=== PATIENT | male | born 1970 | race Caucasian/White ===

== ENCOUNTER 2018-11-15 17:28 | Emergency (ER) | payer OTHER ==
[~2018-11-15] VITALS: Ht 190.5 cm; Wt 88.9 kg
[~2018-11-15 17:28] MED LIST: ALBU90OI INH; AMOX250 PO; BENZ100A PO; CHLO25 PO; CLIN300 PO; CYCL10 PO; Crutch1 EACH MISC; HYDACE5 PO; IBUP800 PO; Norco 5-325 Ta1 EACH PO; SPACE CHAMBER1 EACH MC; VENL25
[2018-11-15] MEDS ORDERED: VENL25 PO (17:38)
[2018-11-15 18:16] LABS: BASOPHILS ABSOLUTE AUTO 0.04 K/mm3 (0.00-0.23); BASOPHILS PERCENT AUTO 0 % (0-2); EOSINOPHILS ABSOLUTE AUTO 0.03 K/mm3 (0.00-0.68); EOSINOPHILS PERCENT AUTO 0 % (0-6); Hematocrit 42.5 % (37.0-53.0); Hemoglobin 14.8 g/dL (13.5-17.5); IMMATURE GRAN ABSOLUTE AUTO 0.05 K/mm3 (0.00-0.10); IMMATURE GRAN PERCENT AUTO 0 % (0-1); LYMPHOCYTES ABSOLUTE AUTO 1.69 K/mm3 (0.84-5.20); LYMPHOCYTES PERCENT AUTO 12 % (21-46); MONOCYTES ABSOLUTE AUTO 1.25 K/mm3 (0.16-1.47); MONOCYTES PERCENT AUTO 9 % (4-13); Mean Corpuscular HGB 32.5 pg (26.0-34.0); Mean Corpuscular HGB Conc 34.8 g/dL (31.5-36.5); Mean Corpuscular Volume 93 fL (80-100); Mean Platelet Volume 9.8 fL (9.1-12.4); NEUTROPHILS ABSOLUTE AUTO 11.63 K/mm3 (1.96-9.15); NEUTROPHILS PERCENT AUTO 79 % (41-73); Platelet Count 183 K/mm3 (150-400); RDW Coefficient Variation 12.2 % (11.7-14.2); RDW Standard Deviation 42.5 fL (35.1-46.3); Red Blood Cell Count 4.56 M/mm3 (4.30-5.90); White Blood Cell Count 14.69 K/mm3 (4.00-11.30)
[2018-11-15 18:38] LABS: Anion Gap 12 mmol/L (6-16); Blood Urea Nitrogen 11 mg/dL (8-24); Bun/Creatinine Ratio 12.2 (12.0-20.0); CO2, Blood 22 mmol/L (21-32); Calcium, Blood 8.5 mg/dL (8.5-10.1); Chloride, Blood 103 mmol/L (98-108); Glomerular Filtration Rate >60 (60-); Glucose, Blood 113 mg/dL (70-99); Sodium, Blood 137 mmol/L (136-145)
[2018-11-15] MEDS ORDERED: Percocet 5-3251 EACH PO (21:37)
[2018-11-15] MEDS ORDERED: CHLO25 PO (21:37)
== END 2018-11-15 21:52 | disposition home or self-care (01) ==
LOC: ER 17:28
PROVIDERS: Physician Assistant
DX: S02.609A Fracture of mandible, unspecified, initial encounter for closed fracture (principal); S02.82XA Fracture of other specified skull and facial bones, left side, initial encounter for closed fracture; S00.531A Contusion of lip, initial encounter; F10.239 Alcohol dependence with withdrawal, unspecified; F17.200 Nicotine dependence, unspecified, uncomplicated; Y04.0XXA Assault by unarmed brawl or fight, initial encounter
CPT/HCPCS: 36415; 70486; 80048; 85025; 99284-25

== ENCOUNTER 2019-08-14 01:37 | Observation (INO) | payer OTHER ==
[~2019-08-14] VITALS: Ht 182.9 cm; Wt 99.8 kg
[~2019-08-14 01:37] MED LIST changes: +Percocet 5-3251 EACH PO; +VENL25 PO
== END 2019-08-14 08:30 | disposition home or self-care (01) ==
LOC: ER 01:37 → EOR 01:38
PROVIDERS: ADMIT Emergency Medicine
DX: R45.851 Suicidal ideations (principal); F10.129 Alcohol abuse with intoxication, unspecified; F17.200 Nicotine dependence, unspecified, uncomplicated; Z79.899 Other long term (current) drug therapy
CPT/HCPCS: 36415; 99285; G0378

== ENCOUNTER 2020-11-14 17:12 | Observation (INO) | payer OTHER ==
[~2020-11-14] VITALS: Ht 190.5 cm; Wt 104.3 kg
[~2020-11-14 17:12] MED LIST changes: +NEURONTIN600 MG PO
[2020-11-14] MEDS ORDERED: BUSP5 (17:24)
[2020-11-14] MEDS ORDERED: VENL25 (17:24)
[2020-11-14 17:50] LABS: BASOPHILS ABSOLUTE AUTO 0.04 K/mm3 (0.00-0.23); BASOPHILS PERCENT AUTO 0 % (0-2); EOSINOPHILS ABSOLUTE AUTO 0.25 K/mm3 (0.00-0.68); EOSINOPHILS PERCENT AUTO 2 % (0-6); Hematocrit 41.7 % (37.0-53.0); Hemoglobin 13.6 g/dL (13.5-17.5); IMMATURE GRAN ABSOLUTE AUTO 0.05 K/mm3 (0.00-0.10); IMMATURE GRAN PERCENT AUTO 0 % (0-1); LYMPHOCYTES PERCENT AUTO 24 % (21-46); MONOCYTES ABSOLUTE AUTO 1.23 K/mm3 (0.16-1.47); MONOCYTES PERCENT AUTO 8 % (4-13); Mean Corpuscular HGB 29.4 pg (26.0-34.0); Mean Corpuscular HGB Conc 32.6 g/dL (31.5-36.5); Mean Corpuscular Volume 90 fL (80-100); NEUTROPHILS ABSOLUTE AUTO 10.08 K/mm3 (1.96-9.15); NEUTROPHILS PERCENT AUTO 66 % (41-73); Platelet Count 215 K/mm3 (150-400); RDW Coefficient Variation 12.9 % (11.7-14.2); RDW Standard Deviation 42.5 fL (35.1-46.3); Red Blood Cell Count 4.62 M/mm3 (4.30-5.90); White Blood Cell Count 15.35 K/mm3 (4.00-11.30)
[2020-11-14 18:04] LABS: Alanine Aminotransfer (ALT/SGP 24 U/L (12-78); Albumin, Blood 3.7 g/dL (3.4-5.0); Alk Phos 79 U/L (50-136); Anion Gap 2 mmol/L (6-16); Aspartate Aminotrans (AST/SGOT 13 U/L (12-37); Bilirubin, Total 0.3 mg/dL (0.1-1.0); Blood Urea Nitrogen 9 mg/dL (8-24); Bun/Creatinine Ratio 11.2 (12.0-20.0); CO2, Blood 30 mmol/L (21-32); Calcium, Blood 8.7 mg/dL (8.5-10.1); Chloride, Blood 107 mmol/L (98-108); Creatinine, Blood 0.81 mg/dL (0.60-1.20); Globulin, Blood 3.8 g/dL (2.2-4.0); Glomerular Filtration Rate >60 (60-); Glucose, Blood 111 mg/dL (70-99); Potassium, Blood 3.7 mmol/L (3.5-5.5); Sodium, Blood 139 mmol/L (136-145); Total Protein, Blood 7.5 g/dL (6.4-8.2)
[2020-11-14 19:48] LABS: Source, Urine Clean Catch
[2020-11-14 20:05] LABS: Appearance, Urine Clear (Clear); Bilirubin, Urine Neg (Neg); Blood, Urine Neg (Neg); Color, Urine Yellow (P-Yellow); Glucose Qualitative, Urine Neg (Neg); Ketones, Urine Neg (Neg); Leukocyte Esterase, Urine Neg (Neg); Nitrite, Urine Neg (Neg); Protein, Urine Neg (Neg); Specific Gravity, Urine 1.015 (1.003-1.022); Urobilinogen, Urine 1+ (Normal); pH, Urine 6.5 (5.0-8.0)
[2020-11-14] MEDS ORDERED: VENLAFAXINE HC225 MG PO (21:05)
[2020-11-14] MEDS ORDERED: Buspirone HCl15 MG PO (21:05)
[2020-11-14] MEDS ORDERED: REMERON15 M1 PO (21:23)
[2020-11-14 23:11] LABS: Influenza A, PCR Negative (NEGATIVE); Influenza B, PCR Negative (NEGATIVE); Resp Syncytial Virus, PCR Negative (NEGATIVE); SARS-Cov-2 (COVID-19) PCR, MMC Negative (NEGATIVE)
--- NOTE | 2020-11-15 03:20 | NUR ---
THE PATIENT ARRIVED ON UNIT AT 2200 ON 11/14/20. RLQ PAIN HE IS ALERT AND ORIENTED X4. VS ARE WNL AND IS ON RA. PATIENT REPORTED NO PAIN ON ARRIVAL. HE IS PLEASANT AND LIKES TO MAKE JOKES. HE WAS ABLE TO EAT UNTIL 0000. HE TOLERATED THE PO INTAKE WHEN HE COULD. PATIENT HAS ALSO VOIDED. HE WAS ABLE TO WALK TO HIS BED FROM THE ER BED. HE WAS EDUCATED ON HOW TO USE THE CALL LIGHT AND VERBALIZED UNDERSTANDING. HE HAS FLUIDS RUNNING. CALL LIGHT WITHIN REACH.
--- NOTE | 2020-11-15 03:24 | NUR ---
SHIFT SUMMARY: APPENDICITIS NO SIGNIFICANT CHANGES SINCE ARRIVING ON UNIT. HE IS ALERT AND ORIENTED X4 WHILE AWAKE. HE HAS BEEN ASLEEP MAJORITY OF THE SHIFT BUT IS EASILY AROUSABLE. VITALS ARE WNL. PAIN IS CONTROLLED WITH IV DILAUDID. MOST PAINFUL WITH PALPATATION OF RLQ ON ABD. HE HAS FLUIDS RUNNING CURRENTLY. HE HAS BEEN NPO SINCE MIGHTNIGHT. HE IS LAYING DOWN IN BED. CALLS APPROPRIATELY. CALL LIGHT WITHIN REACH. THE PLAN IS FOR POSSIBLE SURGERY TODAY.
--- NOTE | 2020-11-15 08:56 | NUR ---
TO DAY SURGERY PER CART
[2020-11-15] MEDS ORDERED: AMOCLA875 PO (12:32)
[2020-11-15] MEDS ORDERED: HYDR1TAB94 PO (12:33)
--- NOTE | 2020-11-15 14:06 | NUR ---
1400 DISCHARGE PT REPORTS PAIN IS CONTROLLED, HAS NOT TAKEN ANY PAIN MEDS POST OP. JOSH PO FOOD AND FLUIDS WITHOUT NAUSEA. PT AMBULATING IN ROOM AND HALLWAYS. ABD INCISIONS WITH STERI STRIPS INTACT. UMBILICAL INCISION WITH SMALL AMOUNT BLOODY DRAINAGE, 4X4 GAUZE APPLIED AND 4X4 GAUZE SENT HOME WITH PATIENT
== END 2020-11-15 14:00 | disposition home or self-care (01) ==
LOC: ER 17:12 → SURS 17:13 → ER 20:57 → SURS 20:57 → ER 21:50 → SURS 21:57
PROVIDERS: Physician Assistant; ADMIT Surgery
DX: K35.80 Unspecified acute appendicitis (principal); F17.210 Nicotine dependence, cigarettes, uncomplicated; Z79.899 Other long term (current) drug therapy; Z20.822 Contact with and (suspected) exposure to COVID-19; Z23 Encounter for immunization
CPT/HCPCS: 0241U; 36415; 74177; 80053; 81003; 83690; 85025; 88304; 96361; 96365-59; 96375; 99285-25; J0295; J0694; J1100; J1170; J1885; J2250; J2405; J2704; J3010; J7030; J7120; Q9967

== ENCOUNTER 2022-02-16 12:44 | Inpatient (IN) | payer OTHER ==
[~2022-02-16] VITALS: Ht 190.5 cm; Wt 102.6 kg
[~2022-02-16 12:44] MED LIST changes: +AMOCLA875 PO; +BUSP5; +Buspirone HCl15 MG PO; +HYDR1TAB94 PO; +REMERON15 M1 PO; +VENLAFAXINE HC225 MG PO
[2022-02-16 15:31] LABS: BASOPHILS ABSOLUTE AUTO 0.05 K/mm3 (0.00-0.23); BASOPHILS PERCENT AUTO 1 % (0-2); EOSINOPHILS ABSOLUTE AUTO 0.09 K/mm3 (0.00-0.68); EOSINOPHILS PERCENT AUTO 1 % (0-6); Hematocrit 39.8 % (37.0-53.0); IMMATURE GRAN ABSOLUTE AUTO 0.02 K/mm3 (0.00-0.10); IMMATURE GRAN PERCENT AUTO 0 % (0-1); LYMPHOCYTES ABSOLUTE AUTO 2.63 K/mm3 (0.84-5.20); LYMPHOCYTES PERCENT AUTO 32 % (21-46); MONOCYTES ABSOLUTE AUTO 1.13 K/mm3 (0.16-1.47); MONOCYTES PERCENT AUTO 14 % (4-13); Mean Corpuscular HGB Conc 35.2 g/dL (31.5-36.5); Mean Corpuscular Volume 91 fL (80-100); Mean Platelet Volume 10.5 fL (9.1-12.4); NEUTROPHILS ABSOLUTE AUTO 4.33 K/mm3 (1.96-9.15); NEUTROPHILS PERCENT AUTO 53 % (41-73); Platelet Count 144 K/mm3 (150-400); RDW Coefficient Variation 11.9 % (11.7-14.2); RDW Standard Deviation 39.7 fL (35.1-46.3); Red Blood Cell Count 4.37 M/mm3 (4.30-5.90); White Blood Cell Count 8.25 K/mm3 (4.00-11.30)
[2022-02-16 15:43] LABS: Alanine Aminotransfer (ALT/SGP 84 U/L (12-78); Albumin, Blood 3.9 g/dL (3.4-5.0); Alk Phos 58 U/L (50-136); Anion Gap 12 mmol/L (6-16); Aspartate Aminotrans (AST/SGOT 46 U/L (12-37); Bilirubin, Total 1.2 mg/dL (0.1-1.0); Blood Urea Nitrogen 9 mg/dL (8-24); CO2, Blood 23 mmol/L (21-32); Calcium, Blood 8.9 mg/dL (8.5-10.1); Chloride, Blood 94 mmol/L (98-108); Creatinine, Blood 0.64 mg/dL (0.60-1.20); Ethanol (Alcohol), Blood, Med <3 mg/dL; Globulin, Blood 3.8 g/dL (2.2-4.0); Glomerular Filtration Rate >60 (60-); Glucose, Blood 102 mg/dL (70-99); Potassium, Blood 3.1 mmol/L (3.5-5.5); Sodium, Blood 129 mmol/L (136-145); Total Protein, Blood 7.7 g/dL (6.4-8.2)
[2022-02-16 15:44] LABS: Source, Urine Clean Catch
[2022-02-16 15:53] LABS: Thyroid Stimulating Hormone 1.15 uIU/mL (0.360-4.800); Thyroxine (T4) 8.5 ug/dL (4.5-12.1)
[2022-02-16 15:53] LABS: Appearance, Urine Clear (Clear); Bilirubin, Urine Neg (Neg); Blood, Urine Neg (Neg); Color, Urine Yellow (P-Yellow); Glucose Qualitative, Urine Neg (Neg); Ketones, Urine 2+ (Neg); Leukocyte Esterase, Urine Neg (Neg); Nitrite, Urine Neg (Neg); Protein, Urine Neg (Neg); Specific Gravity, Urine 1.005 (1.003-1.022); Urobilinogen, Urine NORM (Normal); pH, Urine 6.5 (5.0-8.0)
[2022-02-16 16:15] LABS: U Amphetamine Screen Not Detected; U Barbituate Screen Not Detected; U Benzodiazapine Screen DETECTED; U Buprenorphine Screen Not Detected; U Cannabinoids Screen Not Detected; U Cocaine Screen Not Detected; U Methadone Screen Not Detected; U Methamphetamine Screen Not Detected; U Opiates Screen Not Detected; U Oxycodone Screen Not Detected; U Phencyclidine Screen Not Detected; U Propoxyphene Screen Not Detected
--- NOTE | 2022-02-16 18:05 | NUR ---
RECEIVED PT FROM ER VIA GURNEY WITH SECURITY AT BEDSIDE. [facility] 48-DR. ESPINOSA AWARE. PT WRITHING IN BED AND PULLING ON TAT RESTRAINTS X 4 EXTREMITIES. PT EXTREMELY DIAPHORETIC TO THE POINT THAT ECG PATCHES AND IV DRESSING NOT STICKING TO HIM. ECG SHOWS ST WITH RATE 120-130'S. BP 150/100'S. THELMA 99.0 LUNGS CLEAR. NO NOTED SOB. SATS>90% ON RA. NO NOTED GI DISTRESS. PRECEDEX DRIP INITIATED AT 1.4 MCG/KG/MIN AND PT STILL WRITHING, PULLING ON RESTRAINTS AND CRYING OUT-MED WITH ATIVAN 3 MG IVP X 2 SEE EMAR-MINIMAL IMPROVEMENT WITH ATIVAN.
--- NOTE | 2022-02-16 18:50 | NUR ---
DR. CORREIA NOTIFIED BY EMILIE SALINAS THAT PT CIWA STILL 48 DESPITE PRECEDEX DRIP AND ATIVAN 3 MG IVP. ORDERS GIVEN FOR ZYPREXA 10 MG IM X1 NOW AND TO CHANGE TO CIWA PROTOCOL/ORDER SET.
[2022-02-16 20:55] LABS: Source, Urine Clean Catch
[2022-02-16 20:58] LABS: Appearance, Urine Clear (Clear); Bilirubin, Urine Neg (Neg); Blood, Urine 2+ (Neg); Color, Urine Yellow (P-Yellow); Glucose Qualitative, Urine Neg (Neg); Ketones, Urine 3+ (Neg); Leukocyte Esterase, Urine Neg (Neg); Nitrite, Urine Neg (Neg); Protein, Urine 2+ (Neg); Specific Gravity, Urine 1.025 (1.003-1.022); Urobilinogen, Urine 2+ (Normal)
[2022-02-16 21:16] LABS: Hyaline Casts 0-2 /lpf (0-2)
[2022-02-16 21:17] LABS: Bacteria Mod /hpf; Red Blood Cells, Urine Rare /hpf (0-2); Squamous Epithelial Cells Rare /hpf (Few); White Blood Cells, Urine Rare /hpf (0-5)
--- NOTE | 2022-02-16 23:28 | NUR ---
SHIFT ASSESSMENT ASSUMED CARE OF PT @ 1900. BEDSIDE REPORT RECEIVED FROM EMILIE KAPLAN. PT IN 4 POINT RESTRAINTS, RESTLESS AND EXTREMELY DIAPHORETIC, NOT FOLLOWING COMMANDS NOR RESPONDING VERBALLY. ON 4LPM O2 VIA NC c O2 SATS >90%. CIWA REMAINED ELEVATED. PRECEDEX WAS INFUSING @ 1.4. SECOND 18 GA IV ESTABLISHED, KCL INFUSION STARTED. TEMP PROBE PATEL CATH INSERTED WITHOUT DIFFICULTY. PT GIVEN DOSE OF 2MG ATIVAN BY THIS NURSE FOR CIWA, PTS DIAPHORESIS BETTER. PRECEDEX TITRATED OFF, HAS REMAINED OFF SINCE 2029. PT WILL NOW STIR TO STIMULI, ABLE TO SQUEEZE BOTH HANDS AND WIGGLE FEET BUT NOT RESPONDING VERBALLY. REMAINS SOMNOLENT WITHOUT STIMULATION. BP STABLE. SINUS TARA IN THE 50'S ON THE NETWORK DIRECTOR. WILL CONTINUE TO MONITOR CLOSELY.
--- NOTE | 2022-02-17 02:57 | NUR ---
UPDATE PT BEGAN WAKING UP AROUND 0200. PULLING AT RESTRAINTS, TRYING TO EAT PULSE OXIMETRY EMERGENCY DISPATCHER R FINGER. PT REDIRECTABLE FOR SHORT PERIODS. WILL FOLLOW COMMANDS. STATES HIS NAME AND BUT BELIEVES HE IS AT SOMEONES HOUSE. INFORMED PT OF HIS CONDITION AND LOCATION. HE MENTIONED HAVING SEIZURES IN THE PAST FROM ALCOHOL W/D. PT UNDERSTOOD HE WAS AT THE HOSPITAL WHEN THIS NURSE EXPLAINS SITUATION, BUT QUICKLY FORGETS PREVIOUS CONVERSATION. OFFERED PT SOMETHING TO DRINK WITH THE LIBRIUM, PT REQUESTED A BEER. CONVERSATION INITIATED ABOUT PT CONTINUING SOBRIETY OR IF HE PLANS ON DRINKING AGAIN. PT MUMBLED POSSIBLE TREATMENT FACILITY. MEDICATED PT WITH ATIVAN AND LIBRIUM DUE TO INCREASING CIWA SCORE. PRECEDEX BACK ON WELL @ 0.2MCG/KG/HR DUE TO PT BECOMING SLIGHTLY AGITATED. VSS. WILL CONTINUE TO MONITOR CLOSELY.
[2022-02-17 04:33] LABS: BASOPHILS ABSOLUTE AUTO 0.03 K/mm3 (0.00-0.23); BASOPHILS PERCENT AUTO 0 % (0-2); EOSINOPHILS ABSOLUTE AUTO 0.09 K/mm3 (0.00-0.68); EOSINOPHILS PERCENT AUTO 1 % (0-6); Hematocrit 39.1 % (37.0-53.0); Hemoglobin 13.7 g/dL (13.5-17.5); IMMATURE GRAN ABSOLUTE AUTO 0.04 K/mm3 (0.00-0.10); IMMATURE GRAN PERCENT AUTO 0 % (0-1); LYMPHOCYTES ABSOLUTE AUTO 1.96 K/mm3 (0.84-5.20); LYMPHOCYTES PERCENT AUTO 19 % (21-46); MONOCYTES ABSOLUTE AUTO 1.01 K/mm3 (0.16-1.47); MONOCYTES PERCENT AUTO 10 % (4-13); Mean Corpuscular HGB 32.3 pg (26.0-34.0); Mean Corpuscular Volume 92 fL (80-100); Mean Platelet Volume 10.3 fL (9.1-12.4); NEUTROPHILS ABSOLUTE AUTO 7.01 K/mm3 (1.96-9.15); NEUTROPHILS PERCENT AUTO 69 % (41-73); Platelet Count 135 K/mm3 (150-400); RDW Standard Deviation 40.9 fL (35.1-46.3); Red Blood Cell Count 4.24 M/mm3 (4.30-5.90); White Blood Cell Count 10.14 K/mm3 (4.00-11.30)
[2022-02-17 04:50] LABS: Alanine Aminotransfer (ALT/SGP 83 U/L (12-78); Albumin, Blood 3.6 g/dL (3.4-5.0); Albumin/Globulin Ratio 1.1 (0.8-1.8); Alk Phos 56 U/L (50-136); Anion Gap 6 mmol/L (6-16); Aspartate Aminotrans (AST/SGOT 117 U/L (12-37); Bilirubin, Total 0.8 mg/dL (0.1-1.0); Blood Urea Nitrogen 8 mg/dL (8-24); Bun/Creatinine Ratio 10.4 (12.0-20.0); CO2, Blood 27 mmol/L (21-32); Calcium, Blood 8.5 mg/dL (8.5-10.1); Chloride, Blood 103 mmol/L (98-108); Creatinine, Blood 0.77 mg/dL (0.60-1.20); Globulin, Blood 3.4 g/dL (2.2-4.0); Glomerular Filtration Rate >60 (60-); Glucose, Blood 102 mg/dL (70-99); Potassium, Blood 3.6 mmol/L (3.5-5.5); Sodium, Blood 136 mmol/L (136-145)
--- NOTE | 2022-02-17 06:18 | NUR ---
SHIFT SUMMARY PT CONTINUES TO HAVE CIWA'S IN THE HIGH TEENS. MEDICATED MULTIPLE TIMES WITH ATIVAN AND LIBRIUM. LOW DOSE PRECEDEX ON/OFF T/O NIGHT. CURRENTLY PT ON 0.4MCG PRECEDEX. PT REMAINS ON O2 VIA NC @ 2-4LPM c SATS >90%. PATEL CATH REMAINS IN PLACE, DRAINING YELLOW URINE. 4 POINT RESTRAINTS REMAIN ON DUE TO PT PULLING AT LINES AND CORDS. DURING ONE OF PTS LESS CONFUSED MOMENTS THIS NURSE AND SUZIE (CHARGE NURSE) SPOKE TO PT ABOUT CONFIDENTIAL STATUS. PT STATED HIS GF SHAISTA CAN BE UPDATED.
--- NOTE | 2022-02-17 07:29 | NUR ---
ASSUMPTION OF CARE RECEIVED REPORT FROM SILVIANO RN AT 0710, ASSUMED CARE OF PATIENT. PATIENT IN BED, EYES CLOSED, RESPONDED TO VERBAL STIMULI. GARBLED SPEECH, DID NOT FOLLOW COMMANDS OR ANSWER QUESTIONS. PRECEDEX AT 02MCG/KG WITH STABLE VITAL SIGNS. WILL REVIEW ORDERS AND TREAT PRESCRIBED.
--- NOTE | 2022-02-17 09:04 | NUR ---
PATIENT THRASHING AROUND BED, ATTEMPTING TO SIT UP AND WAS PULLING AGAINST RESTRAINTS, GRABBING IV LINES, PATEL, SHEETS. UNABLE TO REDIRECT OR ORIENT PATIENT AT THIS TIME. PATIENT YELLING, SPEECH REMAINS GARBLED, CONFUSED. PATIENT HAD PULLED IV LINE AND BROKE IV TUBING FROM IV PUMP. ATIVAN GIVEN, PRECEDEX WAS INCREASED TO 1.4MCG/KG. CURRENTLY CALM, EYES CLOSED, VITALS STABLE.
--- NOTE | 2022-02-17 15:03 | NUR ---
VISITOR PATIENT'S GIRLFRIEND SHAISTA ARRIVED TO VISIT AFTER BEING IN CONTANCT WITH PREVIOUS RN AFTER PATIENT WAS ADMITTED. PATIENT'S MEDICATION BOTTLES AND WALLET SENT HOME WITH GIRLFRIEND. CLOTHES, SHOES AND CELL PHONE REMAIN WITH PATIENT.
--- NOTE | 2022-02-17 18:22 | NUR ---
SHIFT SUMMARY PATIENT CONFUSED THROUGH SHIFT, COMBATIVE, PULLING ON IV LINES AND PATEL CATHETER. PRECEDEX TITRATED FOR SEDATION AND STABLE VITALS. SIGNIFICANT OTHER VISITIED AND LEFT CONTACT INFORMATION. OXYGEN AT 2L VIA NC WHILE ASLEEP, SP02 ABOVE 95%. BRADICARDIC AFTER PRECEDEX DOSE INCREASED. PRECEDEX CURRENTLY OFF WITH PRN ATIVAN ADMINISTERED NEEDED FOR ELEVATED CIWA. IV FLUIDS INFUSING. PATEL REMAINED PATENT AND DRAINING CLEAR, KELI URINE. WILL CONTINUE TO MONITOR AND REPORT TO ONCOMING RN.
[2022-02-18 04:25] LABS: BASOPHILS ABSOLUTE AUTO 0.04 K/mm3 (0.00-0.23); BASOPHILS PERCENT AUTO 1 % (0-2); EOSINOPHILS ABSOLUTE AUTO 0.22 K/mm3 (0.00-0.68); EOSINOPHILS PERCENT AUTO 3 % (0-6); Hematocrit 40.3 % (37.0-53.0); Hemoglobin 14.1 g/dL (13.5-17.5); IMMATURE GRAN ABSOLUTE AUTO 0.02 K/mm3 (0.00-0.10); IMMATURE GRAN PERCENT AUTO 0 % (0-1); LYMPHOCYTES ABSOLUTE AUTO 2.41 K/mm3 (0.84-5.20); LYMPHOCYTES PERCENT AUTO 28 % (21-46); MONOCYTES ABSOLUTE AUTO 0.95 K/mm3 (0.16-1.47); MONOCYTES PERCENT AUTO 11 % (4-13); Mean Corpuscular HGB 32.3 pg (26.0-34.0); Mean Corpuscular Volume 92 fL (80-100); Mean Platelet Volume 10.7 fL (9.1-12.4); NEUTROPHILS ABSOLUTE AUTO 4.84 K/mm3 (1.96-9.15); NEUTROPHILS PERCENT AUTO 57 % (41-73); Platelet Count 144 K/mm3 (150-400); RDW Coefficient Variation 11.9 % (11.7-14.2); Red Blood Cell Count 4.36 M/mm3 (4.30-5.90); White Blood Cell Count 8.48 K/mm3 (4.00-11.30)
[2022-02-18 04:50] LABS: Alanine Aminotransfer (ALT/SGP 88 U/L (12-78); Albumin, Blood 3.3 g/dL (3.4-5.0); Albumin/Globulin Ratio 0.9 (0.8-1.8); Alk Phos 54 U/L (50-136); Anion Gap 7 mmol/L (6-16); Aspartate Aminotrans (AST/SGOT 167 U/L (12-37); Bilirubin, Total 0.8 mg/dL (0.1-1.0); Blood Urea Nitrogen 7 mg/dL (8-24); Bun/Creatinine Ratio 9.5 (12.0-20.0); CO2, Blood 23 mmol/L (21-32); Calcium, Blood 8.2 mg/dL (8.5-10.1); Chloride, Blood 109 mmol/L (98-108); Creatinine, Blood 0.74 mg/dL (0.60-1.20); Globulin, Blood 3.5 g/dL (2.2-4.0); Glomerular Filtration Rate >60 (60-); Glucose, Blood 89 mg/dL (70-99); Potassium, Blood 3.6 mmol/L (3.5-5.5); Sodium, Blood 139 mmol/L (136-145); Total Protein, Blood 6.8 g/dL (6.4-8.2)
[2022-02-18 04:52] LABS: Prothrombin Time Results 10.5 Sec (9.7-11.5)
--- NOTE | 2022-02-18 06:00 | NUR ---
SHIFT SUMMERY PT HAS BEEN CONFUSED AND RESTLESS. PRECEDEX GTT AT 0.3MGS. PT HAD TO BE REDIRECTED AND REORIENTED MULTIPLE TIMES. PT WAS NOT COMBATIVE DURING THIS SHIFT AND WAS ABLE TO FOLLOW SOME SIMPLE DIRECTIONS.
--- NOTE | 2022-02-18 08:46 | NUR ---
ASSUMED CARE REPORT FROM GERRY PHAN AT 0700. PT RESTING IN BED. GARBLED SPEECH. ORIENTED TO SELF ONLY. OCCASIONALLY ANSWERS QUESTIONS APPROPRIATELY. FOLLOWS SIMPLE COMMANDS. INTERMITTANTLY REDIRECTABLE. PT REQUESTING TO LEAVE. WHEN ASKED IF HE WANTS TO QUIT DRINKING PT REPLIES, "SOMETIMES I DO BUT I ALSO WANT TO DRINK." CIWA 10. PRECEDEX GTT INFUSING. PLAN TO REQUEST LIBRIUM THIS SHIFT. LUNGS CLEAR. VSS. PATEL PATENT, DRAINING CLEAR YELLOW URINE TO GRAVITY. WILL CONTINUE TO MONITOR.
--- NOTE | 2022-02-18 10:07 | NUR ---
DR MOISE ROUNDS PT REQUESTING TO GO HOME. A&OX 2. ABLE TO STATE MONTH AND YEAR. STATES HE IS NOT GOING TO STOP DRINKING. STATES HE IS ABLE TO FIND A SAFE RIDE HOME. PRECEDEX PLACED ON STANDBY. ASSISTED TO GET DRESSED. PT ATTEMPTED TO FIND RIDE HOME. JORGE REMOVED.
--- NOTE | 2022-02-18 11:15 | NUR ---
AMA ANESTHESIOLOGY CRNA WORKING c PT TO ARRANGE RIDE. ATTEMPTED MULTIPLE TIMES TO ASSIST PT IN CALLING FAMILY OR FRIENDS. PT REFUSING TO STAY LONGER. AMBULATED OUT OF DEPARTMENT. AMA SIGNED. PT VERBALIZED UNDERSTANDING OF AMA RISKS.
== END 2022-02-18 11:25 | disposition left against medical advice (07) | DRG 894 ==
LOC: ER 12:44 → ICUW 17:34
PROVIDERS: Internal Medicine; Physician Assistant; ADMIT Internal Medicine
PROC: HZ2ZZZZ Detoxification Services for Substance Abuse Treatment (ICD-10-PCS; principal; 2022-02-16)
DX: F10.231 Alcohol dependence with withdrawal delirium (principal); R44.3 Hallucinations, unspecified; E87.6 Hypokalemia; F41.9 Anxiety disorder, unspecified; F32.A Depression, unspecified; F17.210 Nicotine dependence, cigarettes, uncomplicated; Z79.899 Other long term (current) drug therapy
CPT/HCPCS: 36415; 51702; 80053; 81001; 81003; 82140; 83735; 84436; 84443; 85025; 85610; 87086; 93005; 93010; 96374; 96375; 96376; 99285-25; A9270; G0480; J1650; J2060; J2560; J3411; J3475; J3480; J7042

== ENCOUNTER → 2022-08-28 | Outpatient (CLI) | payer OTHER ==
[2022-09-02 09:24] LABS: Stool Occult Bld Immuno 1 Negative (NEGATIVE)
== END | disposition home or self-care (01) ==
LOC: LAB 12:00 → LAB SHORT 12:00
PROVIDERS: Nurse Practitioner Family
DX: Z12.11 Encounter for screening for malignant neoplasm of colon (principal); Z12.12 Encounter for screening for malignant neoplasm of rectum
CPT/HCPCS: G0328

== ENCOUNTER 2023-06-11 07:36 | Emergency (ER) | payer OTHER ==
[~2023-06-11] VITALS: Ht 190.5 cm; Wt 111.1 kg
[2023-06-11] MEDS ORDERED: Flonase 0.05% N16 GM (08:00)
[2023-06-11 08:47] VITALS: BP 115/74
== END 2023-06-11 08:45 | disposition home or self-care (01) ==
LOC: ER 07:36
DX: F10.239 Alcohol dependence with withdrawal, unspecified (principal); F17.200 Nicotine dependence, unspecified, uncomplicated
CPT/HCPCS: 99285